=== PATIENT | female | born 1970 | race Caucasian/White ===

== ENCOUNTER 2016-10-08 16:58 | Emergency (ER) | payer OTHER ==
[~2016-10-08] VITALS: Ht 157.5 cm; Wt 84.1 kg
[~2016-10-08 16:58] MED LIST: ASPI325T32 PO; ATOR20TA65 PO; IBUP-1827 PO; ONDA-54 PO; TRAZ-118 PO
[2016-10-08 17:04] VITALS: BP 149/91; PULSE 98; RESP 16; O2SAT 98
[2016-10-08] MEDS ORDERED: MeTOProlol 1 mg/mL 5 mL Inj IVPUSH PRN (17:10)
[2016-10-08] MEDS ORDERED: Nitroglycerin 2% 1 Gm Ointment TOPICAL ONE (17:10)
--- NOTE | 2016-10-08 17:29 | DRSVH ---
PROCEDURE: X-RAY CHEST, TWO VIEWS ([id number]) INDICATIONS: chest pain TECHNIQUE: 2 views of the chest were acquired. COMPARISON: [facility], , CHEST 2VW, 04/29/2013, 12:57. FINDINGS: Surgical changes and devices: None. Lungs and pleura: No pleural effusions or pneumothorax. Lungs are clear. Mediastinum: Mediastinal contours are normal. Heart size is normal. Bones and chest wall: No suspicious bony abnormalities. Soft tissues appear unremarkable. IMPRESSION: No acute pulmonary process. Dictated by: Radha Vazquez M.D. on 10/08/2016 at 17:27 Approved by: Radha Vazquez M.D. on 10/08/2016 at 17:28
[2016-10-08 17:44] LABS: BASOPHILS % (AUTO) 0.4 % (0-3); EOSINOPHILS % (AUTO) 2.6 % (0-5); MONOCYTES % (AUTO) 5.5 % (4-12); Mean Corpuscular Hemoglobin 29.7 pg (27.0-35.0); Mean Corpuscular Volume 87.1 fL (81-100); NEUTROPHILS % (AUTO) 64.8 % (40-74); Platelet Count 227 bil/L (150-400)
--- NOTE | 2016-10-08 17:45 | ED.REPORT ---
HPI-Chest Pain 40 and Over Date of Service Oct 08, 2016 ED Provider: Jordan Murdock MD 46 year old female with a history of high cholesterol and pontine stroke 2016 presents to the ER accompanied by her complaining of chest pressure and sharp chest pain onset while at work just prior to arrival. Patient works as a nurse here in the ER, and states that she has been having increasingly severe episodes of similar symptoms intermittently over the past few months while she has been at work, that seem to be elicited by lesser and lesser exertion with each subsequent episode. Symptoms are described as a "flushed" feeling at onset , with palpitations and chest pressure that progresses into sharp substernal chest pain. Today, she experienced a similar episode, with pain that radiated down her left arm which is the cause for her ER visit. also reports that the patient has been breaking out in itching hives every night for the past month, and has been treating with daily Loratadine. Patient quit smoking in November 2015. Nursing Notes Stated Complaint: CHEST PAIN Chief Complaint: Chest Pain Nursing Notes Reviewed: Yes Allergies: Coded Allergies: metoclopramide (Verified Adverse Reaction, Mild, DRIVES ME CRAZY", 10/08/16) Scheduled Aspirin (Aspirin) 325 Mg Tablet 325 MG PO DAILY Atorvastatin Calcium (Atorvastatin Calcium) 20 Mg Tablet 20 MG PO DAILY Ondansetron (Ondansetron) 8 Mg Tablet 8 MG PO Q 8 hours as needed. Trazodone (Trazodone) 100 Mg Tablet 100 MG PO HS Scheduled PRN Ibuprofen (Ibuprofen) 600 Mg Tablet 600 MG PO TID PRN PRN For Pain General Time Seen by MD: 17:08 Chief Complaint Chest pain Hx Obtained From: Patient Arrived By: Walk-in Sudden in Onset?: Yes Onset Occurred: Just prior to arrival Symptom Duration: Since onset Location: : Substernal Quality: Pressure, Sharp Radiation: : Arm left Severity: Current: No pain currently Severity: Maximum: Moderate Associated with: Reports: Palpitations, Shortness of Breath, Denies: Cough, productive, Nausea, Vomiting Pertinent Negative: Pt denies other symptoms Similar Sx Previous: Yes Risk Factors HEART Score HEART for MACE: Mod index of susp (1), Nonspec repol disturb (1), Age 45 - 65 ( 1), No risk factors known (0) HEART for MACE Score: 0-3 (low risk 0.9%-1.7%) PERC Rule PERC Result: PERC rule not satisfied Well's Criteria for PE HR > 100 (1.5) Well's PE Score: 0-2 pts (low risk 3.6%) Past Medical History Past Medical History Pontine Stroke, 2016 Reports: Hyperlipidemia (High cholesterol), Denies: Coronary artery disease, Diabetes mellitus, Hypertension Past Surgical History None reported Family History Noncontributory Smoking History Former Smoker Social History Other Social History: Good social support, , Local resident Occupation ED nurse Ambulatory Status Independent Review of Systems Respiratory: Reports: Shortness of breath, Denies: Hemoptysis, Non-productive cough Cardiovascular: Reports: Chest pain, Palpitations GI: Denies: Abdominal pain, Nausea, Vomiting Skin: Denies Diaphoresis Complete sys rev & neg: except as marked. Physical Exam Initial Vital Signs Vital Signs (First) Date Time Temp Pulse Resp B/P Pulse Ox O2 Delivery O2 Flow Rate FiO2 10/08/16 17:04 36.6 98 16 149/91 98 Room Air Initial VS: Reviewed Head / Eyes: Atraumatic, Normocephalic Neck: Supple, Non-tender, Full range of motion Extremities: Vascular intact, Neuro intact, No swelling, No tenderness Skin: Warm, Dry, No cyanosis Neurologic: Alert, Oriented, Nonfocal General/Constitutional: Awake, Alert, Well developed, Well nourished Respiratory / Chest: Breath sounds NL, Breath sounds = bilat, No respiratory distress, No rales, No rhonchi, No wheezing, No stridor, No chest tenderness Cardiovascular: Heart rate NL, Regular rhythm, Heart sounds NL, No murmurs, Peripheral circulation NL, Pulses = bilaterally, No gross BP differential Abdomen: Soft, Non-tender, No guarding, No rebound, No distention Interpretation & Diagnostics Lab Results Interpretation Result Diagram: 10/08/16 1735 Test 10/08/16 17:35 10/08/16 17:47 White Blood Count 8.5th/mm3 (3.8-10.1) Red Blood Count 4.64mil/mm3 (3.90-5.20) Hemoglobin 13.8g/dL (12.0-15.6) Hematocrit 40.4% (35.0-46.0) Mean Corpuscular Volume 87.1fL (81-100) Mean Corpuscular Hemoglobin 29.7pg (27.0-35.0) Mean Corpuscular Hemoglobin Concent 34.2% (32.0-37.0) Red Cell Distribution Width 12.8% (12.3-15.4) Platelet Count 227bil/L (150-400) Neutrophils (%) (Auto) 64.8% (40-74) Lymphocytes (%) (Auto) 26.6% (14-46) Monocytes (%) (Auto) 5.5% (4-12) Eosinophils (%) (Auto) 2.6% (0-5) Basophils (%) (Auto) 0.4% (0-3) Troponin T < 0.010ug/L (0.0-0.011) Hold Phelan Top Tube Received (Received) ECG Interpretation ECG Interpretation: Sinus rhythm, rate 85 Nonspecific T wave changes, unchanged from 05/04/2016 Time: 16:21 Interpreted by: ED physician X-Ray Chest Interpretation Chest Xray Interpretation: IMPRESSION: No acute pulmonary process. Dictated by: Radha Vazquez M.D. on 10/08/2016 at 17:27 Approved by: Radha Vazquez M.D. on 10/08/2016 at 17:28 View: AP & lat Interpretation / Wet Read by: Interpret - Radiologist Discharge & Departure Shift Change Sign-Out Patient Care Transferred: Yes Discussed Complaint(s): Yes Primary Impression: Chest pain Chest pain type: unspecified Qualified Code: R07.9 - Chest pain, unspecified Referrals: Rafi Huff DO (PCP) Care Transferred to: Dr. Joseph Care Transferred at: 18:00 Eddie Attestation Portions of this note were transcribed by Johny Wesley. I, Dr. Murdock, personally performed the history, physical exam and medical decision-making; I reviewed and confirmed the accuracy of the information in the transcribed note. Signed by: Eddie Sanders, 10/08/2016 and 18:08 copies to: Rafi Huff Kirk H MD Oct 08, 2016 17:45 JOHNY WESLEY Oct 08, 2016 18:04 Tracy Spencer Oct 08, 2016 18:14
[2016-10-08 18:08] LABS: TROPONIN T < 0.010 ug/L (0.0-0.011)
[2016-10-08 18:35] VITALS: BP 135/78; PULSE 67; RESP 20; O2SAT 98
[2016-10-08 20:42] VITALS: BP 150/87; PULSE 87; RESP 20; O2SAT 99
[2016-10-08 20:48] LABS: TROPONIN T < 0.010 ug/L (0.0-0.011)
[2016-10-08 21:12] VITALS: BP 131/76; PULSE 80; RESP 15; O2SAT 98
== END 2016-10-08 21:13 | disposition home or self-care (01) ==
LOC: SED 16:58
DX: R07.9 Chest pain, unspecified (principal); E78.5 Hyperlipidemia, unspecified; Z86.73 Personal history of transient ischemic attack (TIA), and cerebral infarction without residual deficits; Z87.891 Personal history of nicotine dependence; Z79.82 Long term (current) use of aspirin; Z88.8 Allergy status to other drugs, medicaments and biological substances